=== PATIENT | female | born 1990 | race Caucasian/White ===

== ENCOUNTER 2019-04-24 21:29 | Emergency (ER) | payer OTHER ==
--- NOTE | 2019-04-24 21:36 | NUR ---
CALLED PT FOR TRIAGE, NO ANSWER.
--- NOTE | 2019-04-24 21:40 | NUR ---
CALLED PT FOR TRIAGE, NO ANSWER.
--- NOTE | 2019-04-24 21:46 | NUR ---
CALLED PT FOR TRIAGE, NO ANSWER.
== END 2019-04-24 22:29 | disposition left against medical advice (07) ==
LOC: ER 21:32
DX: Z53.21 Procedure and treatment not carried out due to patient leaving prior to being seen by health care provider (principal)